=== PATIENT | female | born 1975 | race Hispanic/Latino ===

== ENCOUNTER 2021-06-12 17:00 | Emergency (ER) | payer BC, OTHER ==
--- OUTSIDE RECORDS SUMMARY | 2021-06-12 17:04 | XMS REPORT | Continuity of Care Document ---
:1975 Author Organization [facility] t Address [address] [place] [address] Care Team Providers Name Role Phone Roro Attending Clinician Unavailable Mcpherson, N Attending Clinician Unavailable Referred Attending Clinician Unavailable Lab, Fam Pob I Attending Clinician Unavailable Anene TRIAGE TECHNICIAN Attending Clinician Roro Admitting Clinician Unavailable Mcpherson, N Admitting Clinician Unavailable Loya, Ly Admitting Clinician Unavailable LOYA, LY Admitting Clinician Unavailable Payers Payer Name Policy Type Policy Number Effective Date Expiration Date S jessica [place] [id number] 2019 00:00:00 [place] Problems This patient has no known problems. Allergies, Adverse Reactions, Alerts Allergy Allergy Status Severity Reaction(s) Onset Inactive Treating Comm ents Source Name Type Date Date Clinician Penicill DA Active U RASH 2020-04 [facility]02 [facility] [address] [place] [address] NO KNOWN Drug Active [facility] [place] [facility] Social History Social Habit Start Date Stop Date Quantity Comments Source Sex Assigned At [birth year] [facility] [place] [facility] Smoking Status Start Date Stop Date Source Unknown if ever smoked [facility] Medications This patient has no known medications. Procedures This patient has no known procedures. Encounters Start End Encounter Admission Attending Care Care Encounter Source Date/Time Date/Time Type Type Clinicians Facility Department ID 2021-04-23 2021-04-23 Outpatient [facility] PRIV PRIV [id number] [facility] 07:14:00 07:14:00 _Yajaira [id number] Medica l 2021-04-02 2021-04-03 [facility] [id number] 14:49:00 12:34:00 Jaja [id number] [facility] [place] 2021-04-02 2021-04-03 Inpatient EM Mcpherson, [facility].01 [id number] [facility] 14:49:00 12:34:00 Jaja 20 [facility] [place] 2021-04-01 2021-04-01 Inpatient EM Mcpherson, [facility] [id number] [facility] 12:00:00 12:00:00 Jaja [id number] [facility] [place] 2021-03-14 2021-03-14 Outpatient [facility] PRIV PRIV [id number] [facility] 05:37:00 05:37:00 _Yajaira [id number] Medica l 2020-10-18 2020-10-18 Outpatient EL Referred, JOSIEWZan CARRENO [id number] [facility] 12:00:00 12:00:00 Self [id number] [facility] 2020-07-23 2020-07-23 Laboratory Lab, [facility] Fam Pob I [facility] 1.. [id number] [facility] 12:00:13 12:20:13 Only Anene, [facility] [id number] [facility] of [place] [id number] Moises as Professio [id number] [address] Office [facility] One 2020-07-23 2020-07-23 Laboratory Lab, [facility] [id number] 12:00:13 12:20:13 Only Fam Pob I Health [id number] [place] [id number] Professio [phone] nal [address] One 2020-07-23 2020-07-23 Outpatient R [facility] [id number] Univers 11:40:00 11:40:00 ity [facility] Results Test Description Test Time Test Comments Results Result Comments Source SURGICAL 2021-04-04 16:37:00 Test Item Value Reference Range Interpretation Comme nts SURGICAL RUN DATE: (test 04/04/21 [facility] PAGE 1 RUN TIME: 1636 code = Specimen Inquiry RUN USER: INTERFACE SR) PATIENT: SHUKRI COLLADO LOC: LUIS U #: [id number] AGE/SX: 45/ F ROOM: [facility] RE04/02/21[facility] DR: Jaja Mcpherson MD : 73 BED: A DIS: 04/03/21 STATUS: DIS Dre TLOC: SPEC #: [id number] RECD: STATUS: SEAN PENA #: [id number] MICHAEL: 04/02/21-[address]: Jaja Mcpherson MD ENTERED: 04/02/21 SP TYPE: SURGICAL OTHR DR: Corina Primary or Family Physician Aubree Loya ED: ANATOMIC SPEC, SPEC TRACK, [id number], [id number], [id number] COPIES TO: Corina P rimary or Family Physician Jaja Mcpherson MD [address] [facility] [address] [place] [address] [phone] [email or web address] Loya DO [address] [facility] [address] [place] [address] PROCEDURES: [id number] (04/02/21-1124) [id number] (04/02/21-1537) [id number] (04/02/21-113) TISSUES: A. ENDOMETRIUM CURETTINGS / BIOPSY - ENDOMETRIAL CURETTINGS B. UTERUS W/WO TUBES OVARIES NON NEOPLASTIC/PROLAPSE - UTERUS, CERVIX, BILATERAL FALLOPIAN TUBES FINAL DIAGNOSIS A. UTERUS, ENDOMETRIAL CURETTINGS:- Weakly proliferative endometrium wi th tubal metaplasia; negative for hyperplasia ormalignancy. - Specimen predominantly (90%) compris ed of blood.- Scant fragments of benign endocervical tissue with no evidence of malignancy. B. UTERUS AND BILATERAL FALLOPIAN TUBES, HYSTERECTOMY WITH BILATERAL SALPINGECTOMY:- Disordered proliferative end ometrium with tubal metaplasia; negative for hyperplasia ormalignancy.- Uterus with leiomyomata, agg regate 3152 grams. - Intact leiomyomata ranging from 0.3-5.5 cm.- Adenomyosis. - Mild chronic cervicitis; negative for dysplasia or malignancy.- Bilateral fallopian tubes with reactive changes. CONTINUED ON NEXT PAGE RUN DATE: 04/04/21 [facility] PAGE 2 RUN TIME: 1637 Specimen Inquiry RUN USER: INTERFACE SPEC #: [id number] PATIENT: SHUKRI COLLADO #[id number] (Continued) GROSS DESCRIPTION Jacki Moraes is received fresh from the OR labeled with the patient's name, and "endometrialcurettings" cons ists blood, mucus and minute fragments of tissue measuring in aggregate 2.5x 2 x 0.2 cm. The fragments t issue are submitted for frozen section along with blood asFSA1, this subsequently submitted for p ermanent sections as A1. The remainder of thespecimen is submitted for permanent sections A2. B). The specimen is received in formalin labeled, "uterus cervix bilateral fallopiantubes" and consists a previously open fragmented uterus with attached cervix, detachedfallopian tubes and separate fibroid w eighing in total 3152 g. The separate fibroid qutmto862 g and measures 6.5 x 4.5 by 3.5 cm. The uterin e body is distorted measuring 35 x 18 x15 cm. The attached cervix is melgar rubbery elongated measuring 5.2 cm in length andaverages from 2.2 up to 2.4 cm in maximum diameter. The external os measures up to 0 .4 cmin greatest dimension. Ovaries are grossly not identified. Orientation is grossly notas sessed. The specimen is sectioned to reveal a markedly hemorrhagic pink-melgar endometrialcavity measuring up to 0.6 cm in greatest dimension. The remaining myometrium is markedlydistorted and measur es up to 15 cm in maximum thickness. Identified are multipleintramural white whorled solid leiomyom as ranging in size from 0.3 up to 5.5 cm in greatestdimension. The cervix is bisected to reveal a pink -melgar fleshy cut surface with pinpointareas of hemorrhage. Discrete nabothian cysts are grossly not identified. A discreteendometrial-endocervical lesion is not identified. Received the sa me container are 2twisted purple melgar fallopian tube segments contain attached fimbria smaller mago suring 2.5 x0.7 x 0.5 cm and the larger measuring 5.5 x 0.8 x 0.7 cm. Both tube segments are sectionedt o reveal a pink-melgar spongy cut surface. Identified are multiple fluid-filled paratubalcysts ranging in size from 0.2-0.3 cm in greatest dimension. Sectioning through theseparate fibroid reveals a whirled white-melgar cut surface with pinpoint areas of hemorrhage.Discrete calcifications are not ident ified. The specimen is representatively sampled. Summary of sections: B1-B2: CervixB3-B6: Endome trium myometriumB7: Locket Maker cross-sections of the smaller fallopian tube segmentB8: Representat yanira sectioning of the larger fallopian tube segmentB9: Locket Maker cross-section 1 intramural l hqalwzznF96: Locket Maker cross-section of the separate fibroid Technical component performe d at [employer],[id number] , [place] [address] Unless gross only, the diagnosis is based upon micr oscopic examination.Immunohistochemistry: This test was developed and its performance characteristicsd etermined by this laboratory. It has not been approved nor does it need approval by [place] FDA. Appro priate positive and negative controls are reviewed and judged to beacceptable. This laborator y is certified under the Clinical Laboratory ImprovementAmendments (CLIA-88) as qualified to perform high complexity clinical laboratory testing. CONTINUED ON NEXT PAGE RUN DATE: 04/04/21 [facility] PAGE 3 RUN TIME: 1637 Specimen Inquiry RUN USER: INTERFACE SPEC #: [id number] PATIENT: SHUKRI COLLADO #[id number] (Continued) INTRAOPERATIVE CONSULTATIO N UTERUS, ENDOMETRIAL CURETTINGS:- specimen predominantly comprised of blood.-minute fragments of b enign endometrium identified without any malignancy. These findings are discussed with Dr. Mcpherson with in a turnaround time of 20 minutes. CLINICAL INFORMATION PELVIC PAIN, UTERINE FIBROIDS, MENORRHAGIA ANEMIA Signed SIGNATURE ON FILE GarryelsieOlivia 04/04/21 1637 END OF REPORT CBC W/AUTO [id number] 05:34:00 Test Item Value Reference Range Interpretation Comments WHITE BLOOD CELL (test 11.3 K/mm3 6.5-12.3 Resul ts verified by code = WBC) repeat analysis RED BLOOD CELL (test 4.03 M/mm3 3.51-4.69 N code = RBC) HEMOGLOBIN (test code = 12.4 g/dL 10.1-13.8 N HGB) HEMATOCRIT (test code = 37.0 % 32.5-41.8 N HCT) MEAN CELL VOLUME (test 91.8 fL 84.6-96.6 N code = MCV) MEAN CELL HGB (test code 30.8 pg 27.3-33.9 N = MCH) MEAN CELL HGB 33.5 gm/dL 32.0-34.2 N CONCETRATION (test code = MCHC) RED CELL DISTRIBUTION 13.2 % 12.2-16.3 N WIDTH (test code = RDW) PLATELET COUNT (test 226 K/mm3 134-363 N code = PLT) MEAN PLATELET VOLUME 10.4 fL 9.2-12.7 N (test code = MPV) NEUTROPHIL % (test code 76.5 % 57.9-77.3 N = NT%) LYMPHOCYTE % (test code 11.7 % 14.5-29.7 L = LY%) MONOCYTE % (test code = 11.5 % 3.6-10.2 H MO%) EOSINOPHIL % (test code 0.0 % 0.0-3.0 N = EO%) BASOPHIL % (test code = 0.1 % 0.1-0.9 N BA%) NEUTROPHIL # (test code 8.7 K/mm3 = NT#) LYMPHOCYTE # (test code 1.3 K/mm3 = LY#) MONOCYTE # (test code = 1.3 K/mm3 MO#) EOSINOPHIL # (test code 0 K/mm3 = EO#) BASOPHIL # (test code = 0.0 K/mm3 BA#) RBC MORPHOLOGY REQUIRED NORMAL NORMAL (test code = RBCM) PLATELET MORPHOLOGY NORMAL NORMAL REQUIRED (test code = PLTMR) COVID 19 Asymptomatic IH [id number] 17:31:00 Test Item Value Reference Range Interpretation Comments COVID 19 NEGATIVE NEGATIVE This test has b een Asymptomatic IH AG authorize d only for the (test code = detection ofpro teins from COVNONPUIAG) SARS-CoV-2, not for any other viruses orpathogens. N egative results should be treated as presumptive andconfirmed wi th a molecular assay , if necessary for patientmanageme nt. Negative result s do not rule out COVID- 19 andshould not b e used as the sole basis for treatment orpat ient management deci sions, including infec tion controldecision s. Negative result s should be considered i n thecontext of a patient's recent exposure s, history and thepresence of clinical signs and symptoms consis tent withCOVID-19. T his test has not been FD A cleared or approved; th e test hasbeen authori william by FDA under an Emerge ncy Use Authorization(E UA) for use by laborato bharathi certified under the CLIA thatmeet the re quirements to perform mode rate, high or waivedcomple xity tests. This mark t is authorized for use at thePoint of Car e (POC), i.e., in patien t care settingsoperati ng under a CLIA Certificat e of Waiver, Certifi vinh ofCompliance, o r Certificate of Accreditation. This test is only authori zegraeme for the duration of thedeclaration that circumstances e xist justifying theauthorizatio n of emergency use o f in vitro diagnostic test sfor detection and/o r diagnosis of CO VID-19 under Uembany63 4(b)(1) of the Act, 21 U.S .C. 360bbb-3(b)(1), unless theauthorizatio n is terminated or r evoked sooner. AB HEPATITIS C [id number] 16:24:00 Test Item Value Reference Range Interpretation Comments AB HEPATITIS C (test code = NONREACTIVE NONREACTIVE HCVAB) SIGNAL TO CUTOFF (test code = <0.02 <0.80 N CUTOFF) AB HIV 1 16:24:00 Test Item Value Reference Range Interpretation Comments AB HIV 1 2 (test NONREACTIVE NONREACTIVE Done by Francesca [facility]ow[facility] center[facility]abdifatah code = IEC06OW) 4th Gen HIV Ag/Ab Combo Screen AG HEPATITIS B [id number] 16:24:00 Test Item Value Reference Range Interpretation Comments AG HEPATITIS B SURFACE (test code NONREACTIVE NONREACTIVE = HBSAG) HCG SERUM [id number] 15:11:00 Test Item Value Reference Range Interpretation Comments HCG SERUM QUAL (test code = HCGQL) NEGATIVE URINALYSIS [id number] 15:03:00 Test Item Value Reference Range Interpretation Comments UA COLOR (test code = COLU) YELLOW YELLOW UA APPEARANCE (test code = CLEAR CLEAR APPU) UA GLUCOSE DIPSTICK (test code NEGATIVE NEG = DGLUU) UA BILIRUBIN DIPSTICK (test NEGATIVE NEG code = BILU) UA KETONE DIPSTICK (test code NEGATIVE NEG = KETU) UA SPECIFIC GRAVITY (test code 1.023 1.001-1.035 N = SGU) UA BLOOD DIPSTICK (test code = NEG NEG JERI) UA PH DIPSTICK (test code = 5.0 5-9 VIRGIE) UA PROTEIN DIPSTICK (test code NEGATIVE NEG = PROU) UA UROBILINIOGEN DIPSTICK NEGATIVE mg/dL NEG (test code = URO) UA NITRITE DIPSTICK (test code NEG NEG = AYDEN) UA LEUKOCYTE ESTERASE DIPSTICK NEG NEG (test code = LEUU) UA WBC (test code = WBCU) 0-2 #/hpf NONE SEEN UA RBC (test code = RBCU) 0-2 #/hpf NONE SEEN UA EPITHELIAL CELLS (test code RARE #/HPF RARE-FEW = EPIU) UA MUCUS (test code = MUCU) RARE NONE SEEN URINE SAMPLE: CLEAN CATCHCBC W/AUTO [id number] 14:50:00 Test Item Value Reference Range Interpretation Comments WHITE BLOOD CELL (test code = WBC) 7.0 K/mm3 6.5-12.3 N RED BLOOD CELL (test code = RBC) 4.61 M/mm3 3.51-4.69 N HEMOGLOBIN (test code = HGB) 13.9 g/dL 10.1-13.8 H HEMATOCRIT (test code = HCT) 42.1 % 32.5-41.8 H MEAN CELL VOLUME (test code = MCV) 91.3 fL 84.6-96.6 N MEAN CELL HGB (test code = MCH) 30.2 pg 27.3-33.9 N MEAN CELL HGB CONCETRATION (test 33.0 gm/dL 32.0-34.2 N code = MCHC) RED CELL DISTRIBUTION WIDTH (test 13.4 % 12.2-16.3 N code = RDW) PLATELET COUNT (test code = PLT) 266 K/mm3 134-363 N MEAN PLATELET VOLUME (test code = 10.6 fL 9.2-12.7 N MPV) NEUTROPHIL % (test code = NT%) 59.2 % 57.9-77.3 N LYMPHOCYTE % (test code = LY%) 28.7 % 14.5-29.7 N MONOCYTE % (test code = MO%) 9.7 % 3.6-10.2 N EOSINOPHIL % (test code = EO%) 1.6 % 0.0-3.0 N BASOPHIL % (test code = BA%) 0.4 % 0.1-0.9 N NEUTROPHIL # (test code = NT#) 4.2 K/mm3 LYMPHOCYTE # (test code = LY#) 2.0 K/mm3 MONOCYTE # (test code = MO#) 0.7 K/mm3 EOSINOPHIL # (test code = EO#) 0.11 K/mm3 BASOPHIL # (test code = BA#) 0.0 K/mm3 RBC MORPHOLOGY REQUIRED (test code NORMAL NORMAL = RBCM) PLATELET MORPHOLOGY REQUIRED (test NORMAL NORMAL code = PLTMR)
[2021-06-12] MEDS ORDERED: NA CHLORIDE 0.9% 1,000 ML ONE (17:46)
[2021-06-12] MEDS ORDERED: FOLIC ACID 5 MG/ML VIAL ONE (17:47)
[2021-06-12 17:56] LABS: Absolute Lymphocytes (CBC) 2.5 K/uL (0.7-4.9); Hematocrit 44.8 % (36.0-45.0); Lymphocytes % 36.1 % (15.3-44.8); MPV 8.7 fL (7.6-11.3)
[2021-06-12 18:01] LABS: Protime INR 0.96
--- NOTE | 2021-06-12 18:03 | RAD REPORT ---
EXAM DESCRIPTION: CT - Ct Stroke Brain Wo Cont - 06/12/2021 5:54 pm CLINICAL HISTORY: SLURRED SPEECH COMPARISON: No comparisons TECHNIQUE: Axial 5 millimeter thick images of the head were obtained without IV contrast. All CT scans are performed using dose optimization technique as appropriate and may include automated exposure control or mA/KV adjustment according to patient size. FINDINGS: No intracranial hemorrhage, mass, or cerebral edema. No acute infarction identifiable. No extra-axial fluid collections. Ibarra matter-white matter differentiation is preserved. Visualized portions of the mastoid air cells, paranasal sinuses, and orbits are unremarkable. Findings telephoned to doctor Duggan 5:58 p.m. IMPRESSION: No CT evidence of acute intracranial process. MR imaging could be performed if there are ongoing concerns for nonhemorrhagic acute ischemia.
[2021-06-12 18:12] LABS: Albumin 4.1 g/dL (3.4-5.0); BUN Blood Urea Nitrogen 18 mg/dL (7-18); Bicarbonate 29 mmol/L (21-32); Glucose Level 145 mg/dL (74-106); Magnesium 2.4 mg/dL (1.8-2.4); Potassium 3.3 mmol/L (3.5-5.1); Sodium Level 137 mmol/L (136-145)
--- NOTE | 2021-06-12 18:18 | RAD REPORT ---
EXAM DESCRIPTION: MRI - Brain Wo Cont - 06/12/2021 6:06 pm CLINICAL HISTORY: TIA COMPARISON: Ct Stroke Brain Wo Cont dated 06/12/2021 TECHNIQUE: Sagittal T1-weighted images were obtained along with axial PD, heavily T2-weighted and T2 -FLAIR images. Axial DWI and ADC mapping sequences were also obtained along with coronal heavily T2-w eighted images. FINDINGS: No intracranial hemorrhage, mass or acute infarction. There is no edema or shift of midlin e structures. No extra-axial fluid collections. Ibarra-matter/white matter junction is preserved. Signa l voids are seen as a normal finding in the major intracranial vessels. Ventricles are normal. No atrophy or chronic ischemic changes seen. No sella or supra sella abnormali ty. Mastoid air cells and paranasal sinuses are clear. No globe or orbital content abnormality. IMPRESSION: Negative non-contrast MRI of the Brain.
[2021-06-12 18:19] LABS: ALT/SGPT 27 U/L (12-78); AST/SGOT 10 U/L (15-37); Alkaline Phosphatase 72 U/L (45-117); Bilirubin Total 0.3 mg/dL (0.2-1.0); NT PRO-BNP 20 pg/mL (<125); Protein, Total 8.1 g/dL (6.4-8.2)
[2021-06-12 18:25] LABS: Bilirubin Direct < 0.1 mg/dL (0-0.2); Troponin High Sensitivity < 3.00 pg/mL (<58.9)
[2021-06-12] MEDS ORDERED: ASPIRIN 81 MG CHEWABLE TABLET ONE (18:31)
[2021-06-12] MEDS ORDERED: POTASSIUM 25 MEQ EFFERV TAB ONE (18:41)
--- NOTE | 2021-06-12 19:09 | ER ---
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 Thursday I began feeling tongue tied/slurred again. It has continuously happened each day. Coronavirus screen: At this time, the client does not indicate any symptoms associated with coronavirus-19. Ebola Screen: No symptoms or risks identified at this time. No acute neurological deficit is noted. Initial Sepsis Screen: Does the patient meet any 2 criteria? No. Patient's initial sepsis screen is negative. Does the patient have a suspected source of infection? No. Patient's initial sepsis screen is negative. Risk Assessment: Do you want to hurt yourself or someone else? Patient reports no desire to harm self or others. Onset of symptoms was June 12, 2021. 17:06 Method Of Arrival: Ambulatory ld1 17:06 Acuity: ARBEN 3 ld1 Triage Assessment: 17:08 The onset of the patients symptoms was June 08, 2021 at 10:00. General: Appears in no ld1 apparent distress. comfortable, Behavior is cooperative, appropriate for age, anxious. Pain: Denies pain. Neuro: Level of Consciousness is awake, alert, obeys commands, Oriented to person, place, time, situation, Reports. Cardiovascular: Capillary refill < 3 seconds Patient's skin is warm and dry. Respiratory: Airway is patent Respiratory effort is even, unlabored. CORE SHAPER TOP: 17:08 LMP N/A - Hysterectomy ld1 Historical: - Allergies: 17:08 PENICILLINS; ld1 - Home Meds: 17:08 None [Active]; ld1 - PMHx: 17:08 None; ld1 - PSHx: 17:08 hysterectomy; ld1 - Immunization history:: Adult Immunizations up to date, Client reports receiving the 2nd dose of the Covid vaccine. - Social history:: Smoking status: Patient denies any tobacco usage or history of. Patient/guardian denies using alcohol. Screenin:33 Abuse screen: Denies threats or abuse. Nutritional screening: No deficits noted. vg1 Tuberculosis screening: No symptoms or risk factors identified. Fall Risk No fall in past 12 months (0 pts). No secondary diagnosis (0 pts). IV access (20 points). Ambulatory Aid- None/Bed Rest/Nurse Assist (0 pts). Gait- Normal/Bed Rest/Wheelchair (0 pts) Mental Status- Oriented to own ability (0 pts). Total Richardson Fall Scale indicates No Risk (0-24 pts). Assessment: 17:25 VAN Scoring: Arm Drift: Patients demonstrates NO arm weakness. Patient is VAN Negative. vg1 Visual Disturbance: No visual disturbance noted. Aphasia: No aphasia noted. Neglect: No neglect noted. 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 General: Appears in no apparent distress. comfortable, Behavior is calm, cooperative. Pain: Denies pain. Neuro: Level of Consciousness is awake, alert, obeys commands, Oriented to person, place, time, situation, Plug Wirer are equal bilaterally Moves all extremities. Gait is steady, Speech is normal, Facial symmetry appears normal, Denies weakness blurred vision dizziness, numbness headache photophobia. Cardiovascular: Patient's skin is warm and dry. Respiratory: Airway is patent Respiratory effort is even, unlabored. GI: Abdomen is round non-distended, Patient currently denies nausea, vomiting. : No signs and/or symptoms were reported regarding the genitourinary system. EENT: No signs and/or symptoms were reported regarding the EENT system. Derm: Skin is intact, is healthy with good turgor. Musculoskeletal: Circulation, motion, and sensation intact. 17:48 Reassessment: pt in CT and then will be transferred to MRI. vg1 18:33 Reassessment: Patient appears in no apparent distress at this time. No changes from vg1 previously documented assessment. Patient and/or family updated on plan of care and expected duration. Pain level reassessed. Patient is alert, oriented x 3, equal unlabored respirations, skin warm/dry/pink. Vital Signs: 17:06 BP 130 / 93; Pulse 77; Resp 18; Temp 97.7(TE); Pulse Ox 98% on R/A; Weight 74.84 kg; ld1 Height 5 ft. 5 in. (165.10 cm); Pain 0/10; 18:35 BP 119 / 93; Pulse 78; Resp 16; Pulse Ox 99% on R/A; vg1 17:06 Body Mass Index 27.46 (74.84 kg, 165.10 cm) ld1 NIH Stroke Scale Scores: 17:25 NIHSS Score: 0 vg1 ED Course: 17:01 Patient arrived in ED. as 17:08 Triage completed. ld1 17:08 Arm band placed on left wrist. ld1 17:11 Kerry Pyle, RN is Primary Nurse. vg1 17:23 Inserted saline lock: 20 gauge in right antecubital area, using aseptic technique. ap3 Blood collected. 17:35 Stanislav Duggan MD is Attending Physician. zach 17:54 CT Stroke Brain w/o Contrast In Process Unspecified. EDMS 18:06 Brain Wo Cont In Process Unspecified. EDMS 18:33 Patient has correct armband on for positive identification. Placed in gown. Bed in low vg1 position. Call light in reach. Side rails up X2. 18:33 nuclear monitoring technician on. Pulse ox on. NIBP on. vg1 18:33 No provider procedures requiring assistance completed. vg1 18:58 US Carotid Artery Bilateral In Process Unspecified. EDMS 19:08 Jose Alejandro Louis MD is Referral Physician. zach 19:31 XRAY Chest (1 view) In Process Unspecified. EDMS 19:42 IV discontinued, intact, bleeding controlled, No redness/swelling at site. Pressure ll3 dressing applied. Administered Medications: 18:30 Drug: foLIC Acid 1 mg Route: IVPB; Site: right antecubital; vg1 18:58 Follow up: Response: No adverse reaction vg1 18:30 Drug: NS 0.9% 1000 ml Route: IV; Rate: 1 bolus; Site: right antecubital; vg1 18:33 Drug: Aspirin Chewable Tablet 324 mg Route: PO; vg1 18:58 Follow up: Response: No adverse reaction vg1 18:58 Drug: Potassium Effervescent Tablet 25 mEq Route: PO; vg1 19:42 Drug: Lipitor (atorvastatin) 10 mg Route: PO; ll3 19:42 Follow up: Response: Medication administered at discharge. ll3 Outcome: 19:08 Discharge ordered by . zach 19:42 Discharged to home ambulatory. ll3 19:42 Condition: stable 19:42 Discharge instructions given to patient, Instructed on discharge instructions, follow up and referral plans. medication usage, Demonstrated understanding of instructions, follow-up care, medications, Prescriptions given X 3. 19:43 Patient left the ED. ll3 NIH Stroke Scale - NIH Stroke Score Date: 06/12/2021 Time: 17:25 Total Score = 0 1a. Level of Consciousness (LOC) - 0(Alert) 1b. Level of Consciousness (LOC) (Month \\T\\ Age) - 0(Both) 1c. LOC Commands (Open \\T\\ Closes Eyes/Fur Cutter) - 0(Both) 2. Best Gaze (Lateral Gaze Paresis) - 0(Normal) 3. Visual Field Loss - 0(No visual loss) 4. Facial Palsy - 0(Normal) 5a. Left Arm: Motor (10-second hold) - 0(No drift) 5b. Right Arm: Motor (10-second hold) - 0(No drift) 6a. Left Leg: Motor (5-second hold - always test supine) - 0(No drift) 6b. Right Leg: Motor (5-second hold - always test supine) - 0(No drift) 7. Limb Ataxia (finger/nose \\T\\ heel/garza - test with eyes open) - 0(Absent) 8. Sensory Loss (pinprick arms/legs/face) - 0(Normal) 9. Best Language: Aphasia (description/naming/reading) - 0(No aphasia) 10. Dysarthria (speech clarity - read or repeat words) - 0(Normal) 11. Extinction and Inattention (visual/tactile/auditory/spatial/personal) - 0(No abnormality) Initials: vg1 Signatures: Dispatcher [employer] EDStanislav Ford MD MD cha Martinez, Amelia as Prokisch, Amanda RN RN Kerry Salinas RN RN vg1 Camila Roberts RN RN ld1 Janeth Hernandez RN RN ll3 Corrections: (The following items were deleted from the chart) 17:09 17:08 Allergies: No Known Allergies; ld1 ld1
--- NOTE | 2021-06-12 19:09 | EDPHYS ---
Physician Documentation [facility] Name: Marva York Age: 46 yrs Sex: Female : 1975 Arrival Date: 06/12/2021 Time: 17:01 Bed 3 Private MD: ED Physician Stanislav Duggan HPI: 06/12 18:33 This 46 yrs old Female presents to ER via Ambulatory with complaints of zach Slurred Speech, Trouble Talking, Eye Problem. 18:33 The patient presents to the emergency department with weakness of the entire body, zach generalized weakness, a speech or higher order brain function problem, words jumbled up, nervous , fatigued. Onset: The symptoms/episode began/occurred 1 week(s) ago. Context: occurred at an unknown location, occurred while the patient was talking in anglican. Associated signs and symptoms: The patient has no apparent associated signs or symptoms. Severity of symptoms: At their worst the symptoms were mild in the emergency department the symptoms have resolved unk. Patient's baseline: Neuro: alert and fully oriented. Current symptoms: Currently, the patient is not experiencing any symptoms, the patient feels back to baseline. The patient has not experienced similar symptoms in the past. CONFIGURATION MANAGEMENT ARCHITECT: 17:08 LMP N/A - Hysterectomy ld1 Historical: - Allergies: 17:08 PENICILLINS; ld1 - Home Meds: 17:08 None [Active]; ld1 - PMHx: 17:08 None; ld1 - PSHx: 17:08 hysterectomy; ld1 - Immunization history:: Adult Immunizations up to date, Client reports receiving the 2nd dose of the Covid vaccine. - Social history:: Smoking status: Patient denies any tobacco usage or history of. Patient/guardian denies using alcohol. ROS: 18:36 Constitutional: Negative for fever, chills, and weight loss, Eyes: Negative for injury, zach pain, redness, and discharge, ENT: Negative for injury, pain, and discharge, Neck: Negative for injury, pain, and swelling, Cardiovascular: Negative for chest pain, palpitations, and edema, Respiratory: Negative for shortness of breath, cough, wheezing, and pleuritic chest pain, Abdomen/GI: Negative for abdominal pain, nausea, vomiting, diarrhea, and constipation, Back: Negative for injury and pain, : Negative for injury, bleeding, discharge, and swelling, MS/Extremity: Negative for injury and deformity, Skin: Negative for injury, rash, and discoloration, Psych: Negative for depression, anxiety, suicide ideation, homicidal ideation, and hallucinations, Allergy/Immunology: Negative for hives, rash, and allergies, Endocrine: Negative for neck swelling, polydipsia, polyuria, polyphagia, and marked weight changes, Hematologic/Lymphatic: Negative for swollen nodes, abnormal bleeding, and unusual bruising. 18:36 Neuro: Positive for weakness. Exam: 18:36 Constitutional: This is a well developed, well nourished patient who is awake, alert, zach and in no acute distress. Head/Face: Normocephalic, atraumatic. Eyes: Pupils equal round and reactive to light, extra-ocular motions intact. Lids and lashes normal. Conjunctiva and sclera are non-icteric and not injected. Cornea within normal limits. Periorbital areas with no swelling, redness, or edema. ENT: Nares patent. No nasal discharge, no septal abnormalities noted. Tympanic membranes are normal and external auditory canals are clear. Oropharynx with no redness, swelling, or masses, exudates, or evidence of obstruction, uvula midline. Mucous membranes moist. Neck: Trachea midline, no thyromegaly or masses palpated, and no cervical lymphadenopathy. Supple, full range of motion without nuchal rigidity, or vertebral point tenderness. No Meningismus. Chest/axilla: Normal chest wall appearance and motion. Nontender with no deformity. No lesions are appreciated. Cardiovascular: Regular rate and rhythm with a normal S1 and S2. No gallops, murmurs, or rubs. Normal PMI, no JVD. No pulse deficits. Respiratory: Lungs have equal breath sounds bilaterally, clear to auscultation and percussion. No rales, rhonchi or wheezes noted. No increased work of breathing, no retractions or nasal flaring. Abdomen/GI: Soft, non-tender, with normal bowel sounds. No distension or tympany. No guarding or rebound. No evidence of tenderness throughout. Back: No spinal tenderness. No costovertebral tenderness. Full range of motion. Skin: Warm, dry with normal turgor. Normal color with no rashes, no lesions, and no evidence of cellulitis. MS/ Extremity: Pulses equal, no cyanosis. Neurovascular intact. Full, normal range of motion. Neuro: Awake and alert, GCS 15, oriented to person, place, time, and situation. Cranial nerves II-XII grossly intact. Motor strength 5/5 in all extremities. Sensory grossly intact. Cerebellar exam normal. Normal gait. Psych: Awake, alert, with orientation to person, place and time. Behavior, mood, and affect are within normal limits. 18:36 ECG was reviewed by the Attending Physician. Vital Signs: 17:06 BP 130 / 93; Pulse 77; Resp 18; Temp 97.7(TE); Pulse Ox 98% on R/A; Weight 74.84 kg; ld1 Height 5 ft. 5 in. (165.10 cm); Pain 0/10; 18:35 BP 119 / 93; Pulse 78; Resp 16; Pulse Ox 99% on R/A; vg1 17:06 Body Mass Index 27.46 (74.84 kg, 165.10 cm) ld1 NIH Stroke Scale Scores: 17:25 NIHSS Score: 0 vg1 MDM: 17:35 Patient medically screened. zach 19:13 Data reviewed: vital signs, nurses notes, lab test result(s), EKG, radiologic studies, zach CT scan, MRI. 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 Test interpretation: by ED physician or midlevel provider: ECG, plain radiologic studies. Counseling: I had a detailed discussion with the patient and/or guardian regarding: the historical points, exam findings, and any diagnostic results supporting the discharge/admit diagnosis, lab results, radiology results. 06/12 17:29 Order name: Basic Metabolic Panel; Complete Time: 18:32 ap3 06/12 17:29 Order name: CBC with Diff; Complete Time: 18:32 ap3 06/12 17:29 Order name: LFT's; Complete Time: 18:32 ap3 06/12 17:29 Order name: Magnesium; Complete Time: 18:32 ap3 06/12 17:29 Order name: NT PRO-BNP; Complete Time: 18:32 ap3 06/12 17:29 Order name: PT-INR; Complete Time: 18:32 ap3 06/12 17:29 Order name: Troponin HS; Complete Time: 18:32 ap3 06/12 17:29 Order name: XRAY Chest (1 view) ap3 06/12 17:29 Order name: CT Stroke Brain w/o Contrast; Complete Time: 18:32 ap3 06/12 17:37 Order name: US Carotid Artery Bilateral zach 06/12 18:04 Order name: Brain Wo Cont; Complete Time: 18:32 EDMS 06/12 17:29 Order name: EKG; Complete Time: 17:30 ap3 06/12 17:29 Order name: Cardiac monitoring; Complete Time: 17:29 ap3 06/12 17:29 Order name: EKG - Nurse/Tech; Complete Time: 17:29 ap3 06/12 17:29 Order name: IV Saline Lock; Complete Time: 17:29 ap3 06/12 17:29 Order name: Labs collected and sent; Complete Time: 17:29 ap3 06/12 17:29 Order name: O2 Per Protocol; Complete Time: 17:29 ap3 06/12 17:29 Order name: O2 Sat Monitoring; Complete Time: 17:29 ap3 EC:36 Rate is 88 beats/min. Rhythm is regular. QRS [place] is Normal. [place] interval is normal. QRS zach interval is normal. QT interval is normal. No Q waves. T waves are Normal. No ST changes noted. Clinical impression: Normal ECG and No evidence of ischemia. Interpreted by me. Reviewed by me. Administered Medications: 18:30 Drug: foLIC Acid 1 mg Route: IVPB; Site: right antecubital; vg1 18:58 Follow up: Response: No adverse reaction vg1 18:30 Drug: NS 0.9% 1000 ml Route: IV; Rate: 1 bolus; Site: right antecubital; vg1 18:33 Drug: Aspirin Chewable Tablet 324 mg Route: PO; vg1 18:58 Follow up: Response: No adverse reaction vg1 18:58 Drug: Potassium Effervescent Tablet 25 mEq Route: PO; vg1 19:42 Drug: Lipitor (atorvastatin) 10 mg Route: PO; ll3 19:42 Follow up: Response: Medication administered at discharge. ll3 Disposition Summary: 06/12/21 19:08 Discharge Ordered Location: Home zach Problem: new zach Symptoms: have improved zach Condition: Stable zach Diagnosis - Weakness zach - Other fatigue zach - Hypokalemia zach Followup: zach - With: Private Physician - When: 2 - 3 days - Reason: Recheck today's complaints, Continuance of care, Re-evaluation by your physician Followup: zach - With: - When: 2 - 3 days - Reason: Recheck today's complaints, Re-evaluation by your physician Discharge Instructions: - Discharge Summary Sheet zach - Weakness zach - Weakness, [id number] zach - Aspirin and Your Heart zach - Deconditioning zach Forms: - Medication Reconciliation Form zach - Thank You Letter zach - Antibiotic Education zach - Prescription Opioid Use zach Prescriptions: - Lipitor 10 mg Oral Tablet - take 1 tablet by ORAL route once daily; 30 tablet; Refills: 0, Product zach Selection Permitted - Folic Acid 1 mg Oral Tablet - take 1 tablet by ORAL route once daily; 30 tablet; Refills: 0, Product zach Selection Permitted NIH Stroke Scale - NIH Stroke Score Date: 06/12/2021 Time: 17:25 Total Score = 0 1a. Level of Consciousness (LOC) - 0(Alert) 1b. Level of Consciousness (LOC) (Month \T\ Age) - 0(Both) 1c. 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 Best Gaze (Lateral Gaze Paresis) - 0(Normal) 3. Visual Field Loss - 0(No visual loss) 4. Facial Palsy - 0(Normal) 5a. Left Arm: Motor (10-second hold) - 0(No drift) 5b. Right Arm: Motor (10-second hold) - 0(No drift) 6a. Left Leg: Motor (5-second hold - always test supine) - 0(No drift) 6b. Right Leg: Motor (5-second hold - always test supine) - 0(No drift) 7. Limb Ataxia (finger/nose \T\ heel/garza - test with eyes open) - 0(Absent) 8. Sensory Loss (pinprick arms/legs/face) - 0(Normal) 9. Best Language: Aphasia (description/naming/reading) - 0(No aphasia) 10. Dysarthria (speech clarity - read or repeat words) - 0(Normal) 11. Extinction and Inattention (visual/tactile/auditory/spatial/personal) - 0(No abnormality) Initials: vg1 Signatures: Dispatcher [employer] Stanislav Dang MD MD cha Prokisch, Amanda, RN RN ap3 Kerry Pyle RN RN vg1 Camila Roberts RN RN ld1 Janeth Hernandez, RN RN ll3 Corrections: (The following items were deleted from the chart) 17: 17:08 Allergies: No Known Allergies; ld1 ld1 18:04 17:38 MR STROKE PROTOCOL+MRI.RAD.LUIS ALFREDOZ ordered. EDMS EDMS
--- NOTE | 2021-06-12 19:16 | RAD REPORT ---
EXAM DESCRIPTION: US - CP - 06/12/2021 6:58 pm CLINICAL HISTORY: SLURRED SPEECH COMPARISON: No comparisons TECHNIQUE: Real-time sonographic evaluation of bilateral carotid and vertebral systems was performed . Ibarra scale and Doppler interrogation were performed with waveform tracing bilaterally. FINDINGS: Normal high resistance waveforms are noted in both external carotid arteries. The common c arotid arteries and internal carotid arteries show normal low resistance waveforms. Minimal plaquing changes are present. Visually there is no significant luminal narrowing. Right ICA i s tortuous. Peak systolic and end diastolic velocity values and the ICA/CCA ratios are in the non-hem odynamically significant range. Antegrade flow seen in both vertebral arteries. Velocity values and ratios were recorded and are retained in the patient's imaging records. IMPRESSION: No significant atherosclerotic changes noted. No evidence of a hemodynamically significant stenosis.
[2021-06-12] MEDS ORDERED: ATORVASTATIN 20 MG TAB ONE (19:37)
--- NOTE | 2021-06-12 20:04 | RAD REPORT ---
EXAM DESCRIPTION: RAD - Chest Single View - 06/12/2021 7:31 pm CLINICAL HISTORY: slurred speech, Stroke protocol chest film COMPARISON: None TECHNIQUE: AP portable chest image was obtained 06/12/2021 7:31 pm . FINDINGS: No focal lung parenchymal process. Interstitial pattern is prominent. This is probably bas lavon but could potentially mask early edema or infiltrate. Heart and vasculature are normal. No mraie urable pleural effusion and no pneumothorax. No acute bony abnormality seen. No acute aortic findings suspected. IMPRESSION: No acute cardiopulmonary process. Underlying interstitial pattern could mask early edema or infiltrate.
[2021-06-12 20:32] VITALS: TEMP 97.7
[2021-06-12 20:33] VITALS: BP 119/93; O2SAT 99
== END 2021-06-12 19:43 | disposition home or self-care (01) ==
LOC: ER 17:00
DX: E87.6 Hypokalemia (principal); R53.83 Other fatigue; Z88.0 Allergy status to penicillin
CPT/HCPCS: 85025; 80048; 36415; 83735; 85610; 80076; 84484; 83880; 70450; 71045; 93880; 70551; J7030; 93005; 96374; 99284